=== PATIENT | male | born 1965 | race Caucasian/White ===

== ENCOUNTER 2016-05-22 21:07 | Emergency (ER) | payer MEDICARE ==
[2016-05-22 21:25] VITALS: BP 197/102
--- NOTE | 2016-05-22 21:31 | EDM.PDOC ---
ED HISTORY OF PRESENT ILLNESS - General Chief Complaint: Respiratory Problem Stated Complaint: SHORT OF BREATH Time Seen by Provider: 05/22/16 21:10 Source: Reports: Patient History Limitations: Reports: No limitations - History of Present Illness INITIAL COMMENTS - FREE TEXT/NARRATIVE: c/o sob x 2w pt with known interstital disease going back to at least 12/[address], still present on CxR 1m ago, repeat CT recommended then PCP Dr Argueta, however pt has had difficulty getting in to be seen at the clinic , did see a pulmonolgist once in [place] several years ago, has a f/u appointment in 2-3 wks has used nebs and OTC allergy meds with some benefit has rhinorrhea, slight pain with cough, otherwise no pain, cough productive small amount of sputum increasing SOB, wonders if he has pneumonia did not get flu vax ("I was always too sick") - Related Data Allergies/ADRs: Allergies Allergy/AdvReac Type Severity Reaction Status Date / Time No Known Allergies Allergy Verified 05/22/16 21:21 Home Meds: Home Meds Ibuprofen 400 mg PO ASDIRECTED PRN 01/24/13 [History] Allopurinol [Zyloprim] 300 mg PO DAILY 06/02/14 [History] Levothyroxine 175 mcg PO ACBRK 06/02/14 [History] Metoprolol Tartrate [Lopressor] 50 mg PO Q12HR 08/25/15 [History] Azithromycin [IJD: Azithromycin] 250 mg PO DAILY #6 tab 05/22/16 [Rx] Prednisone [IJD: predniSONE] 20 mg PO DAILY #7 tab 05/22/16 [Rx] Past Medical History Cardiovascular History: Reports: High cholesterol, Hypertension Respiratory History: Reports: Pulmonary fibrosis Gastrointestinal History: Reports: GERD Musculoskeletal History: Reports: Gout Neurological History: Reports: Alzheimers disease - Past Surgical History GI Surgical History: Reports: Hernia, inguinal Musculoskeletal Surgical History: Reports: Other (see below) Other Musculoskeletal Surgeries/Procedures:: LOWER EXTREMITY VEIN PHLEBECTOMY Social & Family History - Family History Family Medical History: Unobtainable - Tobacco Use Smoking Status *Q: Current Every Day Smoker Years of Tobacco use: 30 Packs/Tins Daily: 1 - Caffeine Use Caffeine Use: Reports: None - Alcohol Use Days Per Week of Alcohol Use: 0 - Recreational Drug Use Recreational Drug Use: No Drug Use in Last 12 Months: No ED ROS GENERAL - Review of Systems Review Of Systems: See Below Constitutional: Reports: no symptoms HEENT: Reports: Rhinitis Respiratory: Reports: shortness of breath, cough Cardiovascular: Reports: No symptoms Endocrine: Reports: no symptoms GI/Abdominal: Reports: No symptoms : Reports: no symptoms Musculoskeletal: Reports: no symptoms Skin: Reports: no symptoms Neurological: Reports: no symptoms Psychiatric: Reports: No symptoms Hematologic/Lymphatic: Reports: no symptoms Immunologic: Reports: no symptoms ED EXAM, GENERAL - Physical Exam Exam: See Below Exam Limited By: No limitations General Appearance: alert, WD/WN, no apparent distress, other (mildly anxious) Ears: normal external exam, normal canal Nose: normal inspection, normal mucosa, no blood, other (no swell R, 60% swell on L) Throat/Mouth: Normal inspection, Normal lips, Normal teeth, Normal gums, Normal oropharynx, Normal voice, No airway compromise Head: atraumatic, normocephalic Neck: normal inspection, supple, non-tender, full range of motion Respiratory/Chest: other (fair to good AE, clear in all [place], no cough observed, talks 10-word sentences) GI/Abdominal: normal bowel sounds, soft, non tender Back Exam: normal inspection, full range of motion, NT Extremities: normal inspection, normal range of motion, non-tender, normal capillary refill, no pedal edema Neurological: alert, oriented, CN II-XII intact, normal cognition, normal gait, normal reflexes, no motor/sensory deficits Psychiatric: normal affect, normal mood Skin Exam: Warm, Dry, Intact, Normal color, No rash Lymphatic: no adenopathy Course - Vital Signs Last Recorded V/S: Last Vital Signs Temp 36.3 C 05/22/16 21:10 Pulse 78 05/22/16 21:10 Resp 20 05/22/16 21:10 BP 197/102 H 05/22/16 21:10 Pulse Ox 100 05/22/16 21:10 - Orders/Labs/Meds Orders: Active Orders 24 hr Category Date Time Status EKG Documentation Completion [RC] ASDIRECTED Care 05/22/16 21:25 Active Chest wo Cont [CT] Stat Exams 05/22/16 21:23 Taken EKG 12 Lead [EK] Routine Ther 03/08/17 21:25 Ordered Labs: Laboratory Tests 05/22/16 05/22/16 05/22/16 Range/Units 21:40 21:40 21:40 WBC 10.4 (4.5-12.0) X10-3/uL RBC 4.85 (4.30-5.75) x10(6)uL Hgb 15.5 (11.5-15.5) g/dL Hct 46.4 (30.0-51.3) % MCV 95.6 (80-96) fL MCH 32.0 (27.7-33.6) pg MCHC 33.4 (32.2-35.4) g/dL RDW 13.2 (11.5-15.5) % Plt Count 209 (125-369) X10(3)uL MPV 7.6 (7.4-10.4) fL Neut % (Auto) 48.7 (46-82) % Lymph % (Auto) 36.5 (13-37) % Cotton % (Auto) 8.5 (4-12) % Eos % (Auto) 6 H (1.0-5.0) % Baso % (Auto) 1 (0-2) % Neut # 5.0 (1.6-8.3) # Lymph # 3.8 (0.6-5.0) # Cotton # 0.9 (0.0-1.3) # Eos # 0.6 (0.0-0.8) # Baso # 0.1 (0.0-0.2) # Sodium 133 L (135-145) mmol/L Potassium 3.6 (3.5-5.3) mmol/L Chloride 101 (100-110) mmol/L Carbon Dioxide 25 (23-29) mmol/L BUN 16 (5-20) mg/dL Creatinine 1.0 (0.6-1.3) mg/dL Est Cr Clr Drug Dosing 90.24 mL/min Estimated GFR (MDRD) > 60 (>60) BUN/Creatinine Ratio 16.0 (9-20) Glucose 104 (80-116) mg/dL Calcium 9.0 (8.6-10.2) mg/dL Total Bilirubin 0.3 (0.1-1.3) mg/dL AST 22 (5-27) IU/L ALT 14 (14-26) IU/L Alkaline Phosphatase 86 (56-112) IU/L Troponin I < 0.01 L (0.02-0.06) NG/ML C-Reactive Protein 1.0 (0.0-1.0) mg/dL Total Protein 7.1 (6.0-8.0) g/dL Albumin 3.8 (3.5-5.2) g/dL Globulin 3.3 g/dL Albumin/Globulin Ratio 1.2 - Re-Assessments/Exams Free Text/Narrative Re-Assessment/Exam: 05/22/16 23:12 CT shows pulmonary fibrosis and bronchiectasis, CBC and CMP and CRP are unremarkable, pt may some component of infection given inc'd sob despite PO 100% Departure - Departure Time of Disposition: 23:14 Disposition: Home, Self-Care 01 Condition: good Clinical Impression: Bronchiectasis, Pulmonary interstitial fibrosis Prescriptions: Azithromycin [IJD: Azithromycin] 250 mg PO DAILY #6 tab Prednisone [IJD: predniSONE] 20 mg PO DAILY #7 tab Instructions: Bronchiectasis Forms: ED Department Discharge Additional Instructions: For infection, take azithromycin 250 mg 2 tabs tomorrow, then 1 tab daily for the next 4 days. To open up your airways, take prednisone 20 mg 2 tabs daily for 2 days, then 1 tab daily or 3 days. Keep your appointment with the photograph developer in 2 weeks. Call your Physician or Return to Emergency Department if: * Your condition worsens in any way. * You develop fever greater than 100.4. * You have vomitting that does not stop with medications. * You have pain that is not controlled with medications. - My Orders Last 24 Hours: My Active Orders 05/22/16 21:23 Chest wo Cont [CT] Stat 05/22/16 21:25 EKG Documentation Completion [RC] ASDIRECTED EKG 12 Lead [EK] Routine - Assessment/Plan Last 24 Hours: My Active Orders 05/22/16 21:23 Chest wo Cont [CT] Stat 05/22/16 21:25 EKG Documentation Completion [RC] ASDIRECTED EKG 12 Lead [EK] Routine
== END 2016-05-22 23:30 | disposition home or self-care (01) ==
LOC: FB.ED 21:07
DX: J47.9 Bronchiectasis, uncomplicated (principal); J84.10 Pulmonary fibrosis, unspecified; E78.00 Pure hypercholesterolemia, unspecified; I10 Essential (primary) hypertension; K21.9 Gastro-esophageal reflux disease without esophagitis; G30.9 Alzheimer's disease, unspecified; Z79.899 Other long term (current) drug therapy; F17.210 Nicotine dependence, cigarettes, uncomplicated
CPT/HCPCS: 36415; 71250; 80053; 84484; 85025; 86140; 93005; 99283; 99285

== ENCOUNTER 2016-05-23 20:34 | Emergency (ER) | payer MEDICARE ==
--- NOTE | 2016-05-23 21:59 | EDM.PDOC ---
ED HISTORY OF PRESENT ILLNESS - General Chief Complaint: Respiratory Problem Stated Complaint: TROUBLE BREATHING Time Seen by Provider: 05/23/16 21:20 Source: Reports: Patient History Limitations: Reports: No limitations - History of Present Illness INITIAL COMMENTS - FREE TEXT/NARRATIVE: c/o sob pt seen 24h in ED by myself with same c/o, has known interstitial fibrosis and an appointment pending with a chief technician x ray in 2w CBC, CMP, CRP where neg yesterday. Chest CT showed the fibrosis along with bronchietasis. He was empirically begun on prednisone and azithromycin yesterday. He continues to be SOB which is better after an alb HFA. His PO was 100% yesterday and 98% today. A d-dimer is pending. - Related Data Allergies/ADRs: Allergies Allergy/AdvReac Type Severity Reaction Status Date / Time No Known Allergies Allergy Verified 05/23/16 20:47 Home Meds: Home Meds Allopurinol [Zyloprim] 300 mg PO DAILY 06/02/14 [History] Levothyroxine 175 mcg PO ACBRK 06/02/14 [History] Metoprolol Tartrate [Lopressor] 50 mg PO Q12HR 08/25/15 [History] Prednisone [IJD: predniSONE] 20 mg PO DAILY #7 tab 05/22/16 [Rx] Past Medical History HEENT History: Reports: None Cardiovascular History: Reports: High cholesterol, Hypertension Respiratory History: Reports: Pulmonary fibrosis Gastrointestinal History: Reports: GERD Musculoskeletal History: Reports: Gout Neurological History: Reports: Alzheimers disease Psychiatric History: Reports: Antisocial behaviors, Anxiety, Bipolar, Panic attack, Schizophrenia Endocrine/Metabolic History: Reports: Hypothyroidism - Past Surgical History GI Surgical History: Reports: Hernia, inguinal Musculoskeletal Surgical History: Reports: Other (see below) Other Musculoskeletal Surgeries/Procedures:: LOWER EXTREMITY VEIN PHLEBECTOMY Social & Family History - Family History Family Medical History: Unobtainable - Tobacco Use Smoking Status *Q: Former Smoker Years of Tobacco use: 41 Packs/Tins Daily: 1 Used Tobacco, but Quit: Yes Month Tobacco Last Used: 05/15/2016 - Caffeine Use Caffeine Use: Reports: Coffee - Alcohol Use Days Per Week of Alcohol Use: 0 - Recreational Drug Use Recreational Drug Use: No Drug Use in Last 12 Months: No ED ROS GENERAL - Review of Systems Review Of Systems: See Below Constitutional: Reports: no symptoms HEENT: Reports: No symptoms Respiratory: Reports: shortness of breath Cardiovascular: Reports: No symptoms Endocrine: Reports: no symptoms GI/Abdominal: Reports: No symptoms : Reports: no symptoms Musculoskeletal: Reports: no symptoms Skin: Reports: no symptoms Neurological: Reports: no symptoms Psychiatric: Reports: Anxiety Hematologic/Lymphatic: Reports: no symptoms Immunologic: Reports: no symptoms ED EXAM, GENERAL - Physical Exam Exam: See Below Exam Limited By: No limitations General Appearance: alert, WD/WN, no apparent distress Ears: normal external exam Nose: normal inspection, normal mucosa, no blood Throat/Mouth: Normal inspection, Normal lips, Normal teeth, Normal gums, Normal oropharynx, Normal voice, No airway compromise Head: atraumatic, normocephalic Neck: normal inspection, supple, non-tender, full range of motion Respiratory/Chest: no respiratory distress, lungs clear, normal breath sounds, no accessory muscle use, chest non-tender, other (anxious, no true dyspnea, no tachypnea, fair to good AE, no wheeze or rales, no cough observed) Cardiovascular: regular rate, rhythm, no edema, no gallop, no rub, other (2/6 DENISE at LSB) GI/Abdominal: soft, non tender Back Exam: normal inspection, full range of motion, NT Extremities: normal inspection, normal range of motion, non-tender, normal capillary refill, no pedal edema Neurological: alert, oriented, CN II-XII intact, normal cognition, no motor/ sensory deficits Psychiatric: anxious Skin Exam: Warm, Dry, Intact, Normal color, No rash Lymphatic: no adenopathy Course - Vital Signs Last Recorded V/S: Last Vital Signs Temp 36.6 C 05/23/16 20:42 Pulse 87 05/23/16 22:10 Resp 18 05/23/16 22:10 BP 144/99 H 05/23/16 22:10 Pulse Ox 98 05/23/16 22:10 - Orders/Labs/Meds Labs: Laboratory Tests 05/23/16 Range/Units 21:22 D-Dimer, Quantitative < 100 L (100-400) ng/mL - Re-Assessments/Exams Free Text/Narrative Re-Assessment/Exam: 05/23/16 22:20 d-dimer is neg Departure - Departure Time of Disposition: 22:20 Disposition: Home, Self-Care 01 Condition: good Clinical Impression: Interstitial fibrosis Forms: ED Department Discharge Additional Instructions: Continue current meds. See chief technician x ray in 2 weeks.
[2016-05-23 22:54] VITALS: BP 141/106
== END 2016-05-23 22:26 | disposition home or self-care (01) ==
LOC: FB.ED 20:34
DX: J84.10 Pulmonary fibrosis, unspecified (principal); E78.00 Pure hypercholesterolemia, unspecified; I10 Essential (primary) hypertension; K21.9 Gastro-esophageal reflux disease without esophagitis; G30.9 Alzheimer's disease, unspecified; F41.9 Anxiety disorder, unspecified; E03.9 Hypothyroidism, unspecified; Z79.899 Other long term (current) drug therapy; Z87.891 Personal history of nicotine dependence
CPT/HCPCS: 36415; 85379; 99282; 99284

== ENCOUNTER 2016-06-13 16:24 | Emergency (ER) | payer MEDICARE ==
[2016-06-13 16:30] VITALS: BP 171/87
[2016-06-13] MEDS ORDERED: diphenhydrAMINE 50 MG Cap PO ONE (16:56)
--- NOTE | 2016-06-13 18:07 | EDM.PDOC ---
ED HPI Behavioral Health - General Chief Complaint: Behavioral/Psych Stated Complaint: PANIC ATTACK Time Seen by Provider: 06/13/16 16:25 Source: Reports: Patient, EMS - History of Present Illness INITIAL COMMENTS - FREE TEXT/NARRATIVE: 50 years old w m came to to the ed deu to anxiety(?) by EMS because his is at work. Pt was calm here in the ed. his only complain was ant c/w pain with deep inspiration. No N/V/D Onset of Symptoms: Reports: gradual Symptom Onset Date: 06/13/16 Symptom Onset Time: 07:00 Duration of Symptoms: Reports: Hour(s):, Intermittent Context, Behavioral Health: Reports: family dynamics Associated Symptoms: Reports: anxiety Treatment(s) COUNTY NURSE: Reports: Other (see below) Other Treatment(s) COUNTY NURSE: visteral - Related Data Allergies Allergy/AdvReac Type Severity Reaction Status Date / Time No Known Allergies Allergy Verified 06/13/16 16:30 Home Medications: Home Meds Allopurinol [Zyloprim] 300 mg PO DAILY 06/02/14 [History] Levothyroxine 175 mcg PO ACBRK 06/02/14 [History] Metoprolol Tartrate [Lopressor] 50 mg PO Q12HR 08/25/15 [History] Prednisone [IJD: predniSONE] 20 mg PO DAILY #7 tab 05/22/16 [Rx] hydrOXYzine Pamoate [Vistaril] 25 mg PO Q6H 06/13/16 [History] Past Medical History HEENT History: Reports: None Cardiovascular History: Reports: High cholesterol, Hypertension Respiratory History: Reports: Pulmonary fibrosis Gastrointestinal History: Reports: GERD Musculoskeletal History: Reports: Gout Neurological History: Reports: Alzheimers disease Psychiatric History: Reports: Antisocial behaviors, Anxiety, Bipolar, Panic attack, Schizophrenia Endocrine/Metabolic History: Reports: Hypothyroidism - Past Surgical History GI Surgical History: Reports: Hernia, inguinal Musculoskeletal Surgical History: Reports: Other (see below) Other Musculoskeletal Surgeries/Procedures:: LOWER EXTREMITY VEIN PHLEBECTOMY Social & Family History - Family History Family Medical History: Unobtainable - Tobacco Use Smoking Status *Q: Former Smoker Years of Tobacco use: 30 Packs/Tins Daily: 1 Used Tobacco, but Quit: Yes Month Tobacco Last Used: 05/31 Second Hand Smoke Exposure: No - Caffeine Use Caffeine Use: Reports: Coffee - Alcohol Use Days Per Week of Alcohol Use: 0 - Recreational Drug Use Recreational Drug Use: No Drug Use in Last 12 Months: No ED ROS GENERAL - Review of Systems Review Of Systems: See Below Constitutional: Reports: no symptoms HEENT: Reports: No symptoms Respiratory: Reports: No Symptoms Cardiovascular: Reports: No symptoms Endocrine: Reports: no symptoms GI/Abdominal: Reports: No symptoms : Reports: no symptoms Musculoskeletal: Reports: no symptoms Skin: Reports: no symptoms Neurological: Reports: No Symptoms Hematologic/Lymphatic: Reports: no symptoms Immunologic: Reports: no symptoms ED EXAM, BEHAVIORAL HEALTH - Physical Exam Exam: See Below Exam Limited By: No limitations General Appearance: alert, WD/WN, no apparent distress Eye Exam: bilateral eye: normal inspection Ears: normal external exam, normal canal, hearing grossly normal Nose: normal inspection, normal mucosa Throat/Mouth: Normal lips Head: atraumatic, normocephalic Neck: normal inspection, supple, non-tender, full range of motion Respiratory/Chest: no respiratory distress, lungs clear, normal breath sounds Cardiovascular: normal peripheral pulses, regular rate, rhythm, no edema, no gallop GI/Abdominal: normal bowel sounds, soft, non tender, no organomegaly (Male) Exam: Deferred Rectal (Males) Exam: Deferred Back Exam: normal inspection, full range of motion, CVA tenderness (R) Extremities: normal inspection, normal range of motion, non-tender Neurological: alert, normal mood/affect, CN II-XII intact EKG INTERPRETATION EKG Date: 06/13/16 Time: 17:25 Rhythm: NSR [place]: RAD-right axis deviation P-wave: present QRS: normal ST-T: normal QT: normal Comparison: NA - no prior EKG COURSE, BEHAVIORAL HEALTH COMP - Course Vital Signs: Last Vital Signs Temp 36.5 C 06/13/16 16:25 Pulse 74 06/13/16 16:25 Resp 20 06/13/16 16:25 BP 171/87 H 06/13/16 16:25 Pulse Ox 98 06/13/16 16:25 50 years old w m came to to the ed deu to anxiety(?) by EMS because his is at work. Pt was calm here in the ed. his only complain was ant c/w pain with deep inspiration. No N/V/D PE: ant C/W discomfort wit h deep insp. ECG: NSR please see report above Impression: Anxiety Tx: Benadryl Reexam: Imprved Plan: D/C to [facility] Orders, Labs, Meds: Active Orders 24 hr Category Date Time Status EKG Documentation Completion [RC] ASDIRECTED Care 06/13/16 16:57 Active EKG 12 Lead [EK] Routine Ther 06/13/16 16:57 Ordered Medications Discontinued Medications Generic Name Dose Route Start Last Admin Trade Name Freq PRN Reason Stop Dose Admin Diphenhydramine HCl 50 mg 06/13/16 16:56 06/13/16 17:43 Benadryl PO 06/13/16 16:57 50 mg ONETIME ONE Administration Departure - Departure Time of Disposition: 18:12 Disposition: Home, Self-Care 01 Condition: good Clinical Impression: Anxiety Referrals: Roque Argueta MD [Primary Care Provider] - Forms: ED Department Discharge Additional Instructions: Please f/u with your PMD, come back if worse. - My Orders Last 24 Hours: My Active Orders 06/13/16 16:57 EKG Documentation Completion [RC] ASDIRECTED EKG 12 Lead [EK] Routine - Assessment/Plan Last 24 Hours: My Active Orders 06/13/16 16:57 EKG Documentation Completion [RC] ASDIRECTED EKG 12 Lead [EK] Routine
== END 2016-06-13 18:03 | disposition home or self-care (01) ==
LOC: FB.ED 16:24
DX: F41.9 Anxiety disorder, unspecified (principal); E78.00 Pure hypercholesterolemia, unspecified; I10 Essential (primary) hypertension; K21.9 Gastro-esophageal reflux disease without esophagitis; E03.9 Hypothyroidism, unspecified; F31.9 Bipolar disorder, unspecified; Z98.890 Other specified postprocedural states; Z87.891 Personal history of nicotine dependence; Z79.899 Other long term (current) drug therapy
CPT/HCPCS: 93005; 99283; A9270

== ENCOUNTER 2016-11-18 20:52 | Emergency (ER) | payer MEDICARE ==
[2016-11-18] MEDS ORDERED: LORazepam 1 MG Tab PO ONE (21:01)
[2016-11-18 21:45] VITALS: BP 135/73
--- NOTE | 2016-11-19 03:19 | ER ---
DATE SEEN: 11/18/2016 REASON FOR VISIT: Anxiety. HISTORY OF PRESENT ILLNESS: A 51-year-old male, who is here with his complaining of anxiety and panic attack, started about 3 hours ago when it was seen that he was unable to breathe. He had tingling of the hands and sweating, but symptoms have slightly improved when he took hydroxyzine. This has been happening lately more than usual. CURRENT MEDICATIONS: Please see the nurse's notes. ALLERGIES: No known allergies. REVIEW OF SYSTEMS: No chest pain, fever, or chills. PHYSICAL EXAMINATION: GENERAL: He is not in any distress. VITAL SIGNS: He is afebrile and normal oxygenation on room air. ENT: Negative. NECK: Supple. CHEST: Clear. CARDIOVASCULAR: Normal. MENTAL STATUS: Alert, mildly anxious, but answers question appropriately. IMPRESSION: Anxiety attack. PLAN: Lorazepam 1 mg orally once. The patient advised to follow up with [facility] tomorrow to discuss review of his medications. TIME SEEN: 9 p.m. /[id number] SHREYA/OMAIRA
== END 2016-11-18 21:21 | disposition home or self-care (01) ==
LOC: FB.ED 20:52
DX: F41.9 Anxiety disorder, unspecified (principal)
CPT/HCPCS: 99282; A9270; 99283

== ENCOUNTER 2019-02-11 16:09 | Emergency (ER) | payer MEDICARE ==
[2019-02-11] MEDS ORDERED: LORazepam 2 MG/ML SDV IM ONE (16:26)
--- NOTE | 2019-02-11 16:26 | EDM.PDOC ---
ED HPI GENERAL MEDICAL PROBLEM - General Time Seen by Provider: 02/11/19 16:10 Source of Information: Reports: Patient History Limitations: Reports: No Limitations - History of Present Illness INITIAL COMMENTS - FREE TEXT/NARRATIVE: pt comes from home by EMS with c/o panic attack, states for about an hr he has been feeling restless and itchy at his extremities, denies any ther associated sx or concerns, including any resp or CV sx or neuro sx. has taken his usual anxiety meds and contacted EMS, on arrival he seems comfortable and has stable vital. - Related Data Allergies Allergy/AdvReac Type Severity Reaction Status Date / Time No Known Allergies Allergy Verified 06/13/16 16:30 Home Meds: Home Meds Allopurinol [Zyloprim] 300 mg PO DAILY 06/02/14 [History] Levothyroxine 175 mcg PO ACBRK 06/02/14 [History] Metoprolol Tartrate [Lopressor] 50 mg PO Q12HR 08/25/15 [History] Prednisone [IJD: predniSONE] 20 mg PO DAILY #7 tab 05/22/16 [Rx] hydrOXYzine Pamoate [Vistaril] 25 mg PO Q6H 06/13/16 [History] Past Medical History HEENT History: Reports: None Cardiovascular History: Reports: High Cholesterol, Hypertension Respiratory History: Reports: Pulmonary Fibrosis Gastrointestinal History: Reports: None Genitourinary History: Reports: None Musculoskeletal History: Reports: Gout Neurological History: Reports: Alzheimers Disease Psychiatric History: Reports: Antisocial Behaviors, Anxiety, Bipolar, Panic Attack, Schizophrenia Endocrine/Metabolic History: Reports: Hypothyroidism Hematologic History: Reports: None Dermatologic History: Reports: None - Past Surgical History Cardiovascular Surgical History: Reports: None GI Surgical History: Reports: Hernia, Inguinal Male Surgical History: Reports: None Social & Family History - Family History Family Medical History: Noncontributory - Caffeine Use Caffeine Use: Reports: Coffee, Other Other Caffeine Use: sprite ED ROS GENERAL - Review of Systems Review Of Systems: See Below Constitutional: Reports: No Symptoms HEENT: Reports: No Symptoms Respiratory: Reports: No Symptoms Cardiovascular: Reports: No Symptoms GI/Abdominal: Reports: No Symptoms : Reports: No Symptoms Musculoskeletal: Reports: No Symptoms Skin: Reports: No Symptoms ED EXAM, GENERAL - Physical Exam Exam: See Below Exam Limited By: No Limitations General Appearance: Alert, No Apparent Distress Nose: Normal Inspection Throat/Mouth: Normal Inspection, Normal Oropharynx Head: Atraumatic, Normocephalic Neck: Normal Inspection, Supple, Non-Tender Respiratory/Chest: No Respiratory Distress, Lungs Clear, Normal Breath Sounds Cardiovascular: Normal Peripheral Pulses, Regular Rate, Rhythm, No JVD, No Murmur GI/Abdominal: Normal Bowel Sounds, Soft, Non-Tender Psychiatric: Anxious. No: Tearful Skin Exam: Warm Course - Vital Signs Text/Narrative:: pt clinically has mild anxiety sx, was give ativan 1 mg , he is stable for discharge home with follow up with PCP. Departure - Departure Time of Disposition: 16:26 Disposition: Home, Self-Care 01 Clinical Impression: Anxiety disorder - Discharge Information Referrals: PCP,None [Primary Care Provider] -
[2019-02-11 17:11] VITALS: BP 143/85; PULSE 85
== END 2019-02-11 16:40 | disposition home or self-care (01) ==
LOC: FB.ED 16:09
DX: F41.9 Anxiety disorder, unspecified (principal); I10 Essential (primary) hypertension; G30.9 Alzheimer's disease, unspecified; F02.80 Dementia in other diseases classified elsewhere, unspecified severity, without behavioral disturbance, psychotic disturbance, mood disturbance, and anxiety; Z79.899 Other long term (current) drug therapy
CPT/HCPCS: 96372; 99283; J2060

== ENCOUNTER 2020-02-06 15:31 | Emergency (ER) | payer MEDICARE ==
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
[2020-02-06 19:56] VITALS: BP 161/83; PULSE 93
== END 2020-02-06 16:39 | disposition home or self-care (01) ==
LOC: FB.ED 15:31
DX: F41.9 Anxiety disorder, unspecified (principal); E78.00 Pure hypercholesterolemia, unspecified; I10 Essential (primary) hypertension; J44.9 Chronic obstructive pulmonary disease, unspecified; K21.9 Gastro-esophageal reflux disease without esophagitis; M10.9 Gout, unspecified; F31.9 Bipolar disorder, unspecified; G30.9 Alzheimer's disease, unspecified; F02.80 Dementia in other diseases classified elsewhere, unspecified severity, without behavioral disturbance, psychotic disturbance, mood disturbance, and anxiety; E03.9 Hypothyroidism, unspecified; E66.9 Obesity, unspecified; Z68.41 Body mass index [BMI] 40.0-44.9, adult; F17.210 Nicotine dependence, cigarettes, uncomplicated
CPT/HCPCS: 99283; 99284

== ENCOUNTER 2020-02-18 14:35 | Emergency (ER) | payer MEDICARE ==
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
[2020-02-18] MEDS ORDERED: cefTRIAXone 1 GM Vial IM ONE (15:51)
[2020-02-18] MEDS ORDERED: Albuterol/Ipratropium 3.0-0.5 MG/3 ML Neb Soln NEB ONE ×2 (15:51→17:08)
[2020-02-18] MEDS ORDERED: methylPREDNISolone Sodium Succinate 125 MG/2 ML SDV IM ONE (15:51)
[2020-02-18] MEDS ORDERED: Doxycycline 100 MG Tab PO ONE (15:53)
[2020-02-18 17:25] VITALS: BP 140/74
[2020-02-18 18:00] VITALS: PULSE 80
== END 2020-02-18 17:52 | disposition home or self-care (01) ==
LOC: FB.ED 14:35
DX: J44.0 Chronic obstructive pulmonary disease with (acute) lower respiratory infection (principal); J20.9 Acute bronchitis, unspecified; E78.00 Pure hypercholesterolemia, unspecified; I10 Essential (primary) hypertension; K21.9 Gastro-esophageal reflux disease without esophagitis; M10.9 Gout, unspecified; G30.9 Alzheimer's disease, unspecified; F02.80 Dementia in other diseases classified elsewhere, unspecified severity, without behavioral disturbance, psychotic disturbance, mood disturbance, and anxiety; E03.9 Hypothyroidism, unspecified; E66.9 Obesity, unspecified; N42.9 Disorder of prostate, unspecified; F41.9 Anxiety disorder, unspecified; F20.9 Schizophrenia, unspecified; Z20.828 Contact with and (suspected) exposure to other viral communicable diseases
CPT/HCPCS: 36415; 71046; 80053; 84484; 85025; 85379; 94640; 96372; 99285; A9270; J0696; J2930; U0002; 99284; J7620-GY

== ENCOUNTER 2020-03-13 11:18 | Emergency (ER) | payer MEDICARE ==
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
[2020-03-13] MEDS: Azithromycin 500 MG Tab PO ONE (11:58)
[2020-03-13] MEDS: predniSONE 20 MG Tab PO STA (13:00)
[2020-03-13] MEDS: Albuterol 2 MG/5 ML Syrup ML 473 ML Bottle PO STA (13:10)
[2020-03-13] MEDS: Albuterol/Ipratropium 3.0-0.5 MG/3 ML Neb Soln NEB ONE (14:14)
--- NOTE | 2020-03-13 14:15 | CT ---
INDICATION: Shortness of breath, COVID. CT CHEST WITHOUT CONTRAST: Spiral 3.75 mm axial sections were obtained through the chest with sagittal, coronal and axial reconstructions 03/13/20 and compared with 05/22/16. Total exam DLP was 769.39 mGy-cm. Moderate to moderately severe mediastinal lymphadenopathy is noted which likely is reactive to infection and appears in some areas slightly increased compared with the previous study. No definite mediastinal mass was seen. The heart appears to be near the upper limits of normal in size. No pericardial effusion was seen. The upper abdomen included on this study showed no gross abnormalities. Extensive interstitial changes, bronchiectasis with honeycombing and centrilobular emphysema. These changes appear to be significantly increased in severity compared with the previous examination. There is also a degree of ground-glass appearing infiltrate scattered among the areas of fibrosis which are fairly severe and become increasingly severe in the lung bases. No gross consolidating pneumonia or effusion was identified. The possibility of coexisting COVID-19 pneumonia certainly cannot be excluded. IMPRESSION: Extensive fibrotic for the most part chronic appearing changes that have advanced considerably compared with 2017 CT of the chest. Honeycombing, interstitial fibrosis, centrilobular emphysema and possibly areas of superimposed patchy pneumonia are suggested. Report was called to Dr. Zavala at 1353 hours. [facility]
[2020-03-13 15:12] VITALS: BP 134/84; PULSE 84
== END 2020-03-13 15:00 | disposition home or self-care (01) ==
LOC: FB.ED 11:18
DX: U07.1 COVID-19 (principal); E03.9 Hypothyroidism, unspecified; F41.9 Anxiety disorder, unspecified; K21.9 Gastro-esophageal reflux disease without esophagitis; J44.9 Chronic obstructive pulmonary disease, unspecified; I10 Essential (primary) hypertension; E78.00 Pure hypercholesterolemia, unspecified; M10.9 Gout, unspecified; Z79.899 Other long term (current) drug therapy
CPT/HCPCS: 71250; 99284; 99285-25; A9270-GY; J7512; U0002

== ENCOUNTER 2020-03-14 12:28 | Emergency (ER) | payer MEDICARE ==
[2020-03-14] MEDS: QUEtiapine 25 MG Tab PO ONE (12:50)
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
[2020-03-14 13:17] VITALS: BP 144/90; PULSE 84
== END 2020-03-14 13:50 | disposition home or self-care (01) ==
LOC: FB.ED 12:28
DX: U07.1 COVID-19 (principal); J44.0 Chronic obstructive pulmonary disease with (acute) lower respiratory infection; F20.9 Schizophrenia, unspecified; F41.0 Panic disorder [episodic paroxysmal anxiety]; I10 Essential (primary) hypertension; E78.00 Pure hypercholesterolemia, unspecified; K21.9 Gastro-esophageal reflux disease without esophagitis; M10.9 Gout, unspecified; F31.9 Bipolar disorder, unspecified; E03.9 Hypothyroidism, unspecified; E66.9 Obesity, unspecified; Z79.899 Other long term (current) drug therapy
CPT/HCPCS: 99283; 99284; A9270-GY

== ENCOUNTER 2020-04-15 09:59 | Emergency (ER) | payer MEDICARE ==
[2020-04-15 10:17] VITALS: BP 152/78; PULSE 17
[2020-04-15] MEDS ORDERED: Bisacodyl 10 MG Supp RECTAL ONE (10:39)
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
== END 2020-04-15 10:50 | disposition home or self-care (01) ==
LOC: FB.ED 09:59
DX: K59.00 Constipation, unspecified (principal); E78.00 Pure hypercholesterolemia, unspecified; I10 Essential (primary) hypertension; J44.9 Chronic obstructive pulmonary disease, unspecified; K21.9 Gastro-esophageal reflux disease without esophagitis; N42.9 Disorder of prostate, unspecified; G30.9 Alzheimer's disease, unspecified; F02.80 Dementia in other diseases classified elsewhere, unspecified severity, without behavioral disturbance, psychotic disturbance, mood disturbance, and anxiety; E03.9 Hypothyroidism, unspecified; E66.9 Obesity, unspecified; Z68.24 Body mass index [BMI] 24.0-24.9, adult
CPT/HCPCS: 99283; 99284; A9270-GY

== ENCOUNTER 2020-04-18 20:35 | Emergency (ER) | payer MEDICARE ==
[2020-04-18] MEDS ORDERED: methylPREDNISolone Sodium Succinate 125 MG/2 ML SDV IVPUSH ONE (20:50)
[2020-04-18] MEDS ORDERED: Ketorolac 30 MG/ML SDV IVPUSH ONE (20:51)
[2020-04-18] MEDS ORDERED: Albuterol/Ipratropium 3.0-0.5 MG/3 ML Neb Soln NEB ONE (20:51)
[2020-04-18] MEDS: Sodium Chloride 0.9% 10 ML Syringe FLUSH PRN ×2 (21:04→21:08)
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
[2020-04-18 22:18] VITALS: BP 131/88; PULSE 86
== END 2020-04-18 22:30 | disposition home or self-care (01) ==
LOC: FB.ED 20:35
DX: J44.9 Chronic obstructive pulmonary disease, unspecified (principal); R09.1 Pleurisy; E78.00 Pure hypercholesterolemia, unspecified; I10 Essential (primary) hypertension; K21.9 Gastro-esophageal reflux disease without esophagitis; N42.9 Disorder of prostate, unspecified; M10.9 Gout, unspecified; G30.9 Alzheimer's disease, unspecified; F02.80 Dementia in other diseases classified elsewhere, unspecified severity, without behavioral disturbance, psychotic disturbance, mood disturbance, and anxiety; E03.9 Hypothyroidism, unspecified; E66.9 Obesity, unspecified; Z68.31 Body mass index [BMI] 31.0-31.9, adult
CPT/HCPCS: 36415; 80053; 83880; 84484; 85025; 85379; 93005; 94640; 96374; 96375; 99285; J1885; J2930; J7620-GY

== ENCOUNTER 2020-05-07 10:18 | Emergency (ER) | payer MEDICARE ==
[2020-05-07 10:35] VITALS: PULSE 88
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
[2020-05-07 13:59] VITALS: BP 126/80
--- NOTE | 2020-05-08 10:42 | CR ---
INDICATION: Status post chest tube insertion 6 days ago. CHEST ONE VIEW: Two AP upright views of the chest were obtained 05/07/20 and compared with 02/18/20. There is bilateral interstitial infiltration which appears to have some predominance peripherally raising question of a process such as COVID-19 pneumonia. There is some minimal pleural thickening laterally. No gross consolidating pneumonia was identified. No significant pleural effusion was seen. The heart did not appear enlarged. IMPRESSION: Increasing infiltration bilaterally is suggested which may be on the basis of unusual pneumonia such as a viral pneumonia. MTDD
--- NOTE | 2020-05-08 10:47 | CR ---
INDICATION: Abdominal pain on the right. ABDOMEN TWO VIEW: Eleven images of the abdomen in supine and upright projections were obtained 05/07/20 and compared with 01/26/13. The pattern of gas and feces is fairly nonspecific without evidence of free air or obstruction. No definite mass lesions or organomegaly were seen. Evidence of previous inguinal herniorrhaphies is noted. There are no definite mass lesions, organomegaly or nonvascular pathologic calcifications were noted. There is suggestion of a dextroconvex slightly rotatory scoliosis of the lower middle lumbar spine. IMPRESSION: Nonacute abdomen. MTDD
== END 2020-05-07 13:10 | disposition home or self-care (01) ==
LOC: FB.ED 10:18
DX: K59.00 Constipation, unspecified (principal); R07.89 Other chest pain; E78.00 Pure hypercholesterolemia, unspecified; I10 Essential (primary) hypertension; J44.9 Chronic obstructive pulmonary disease, unspecified; K21.9 Gastro-esophageal reflux disease without esophagitis; N42.9 Disorder of prostate, unspecified; E03.9 Hypothyroidism, unspecified; E66.9 Obesity, unspecified; Z68.35 Body mass index [BMI] 35.0-35.9, adult; Z86.16 Personal history of COVID-19; M10.9 Gout, unspecified; G30.9 Alzheimer's disease, unspecified; F02.80 Dementia in other diseases classified elsewhere, unspecified severity, without behavioral disturbance, psychotic disturbance, mood disturbance, and anxiety; Z87.891 Personal history of nicotine dependence
CPT/HCPCS: 36415; 71045; 74019; 80053; 81001; 83690; 84484; 85025; 85379; 85610; 85730; 93005; 99285-25

== ENCOUNTER 2020-05-19 02:29 | Emergency (ER) | payer MEDICARE ==
[2020-05-19] MEDS ORDERED: Albuterol/Ipratropium 3.0-0.5 MG/3 ML Neb Soln ONE (02:32)
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
[2020-05-19] MEDS ORDERED: Ketorolac 30 MG/ML SDV IVPUSH ONE (02:52)
[2020-05-19 03:00] VITALS: BP 156/101; PULSE 107
[2020-05-19] MEDS ORDERED: fentaNYL 100 MCG/2 ML SDV ONE ×2 (03:19→03:33)
[2020-05-19] MEDS ORDERED: fentaNYL 100 MCG/2 ML SDV IVPUSH ONE ×3 (03:20→06:35)
[2020-05-19] MEDS ORDERED: HYDROmorphone 2 MG/ML SDV IVPUSH PRN (04:18)
[2020-05-19] MEDS ORDERED: Magnesium Hydroxide 400 MG/5 ML Susp 30 ML Cup PO PRN (04:18)
[2020-05-19] MEDS ORDERED: Zolpidem 5 MG Tab PO PRN (04:18)
[2020-05-19] MEDS ORDERED: Ondansetron 4 MG/2 ML SDV IV PRN (04:18)
[2020-05-19] MEDS ORDERED: Albuterol 0.083% 2.5 MG/3 ML Neb Soln NEB PRN (04:18)
[2020-05-19] MEDS ORDERED: Enoxaparin 40 MG/0.4 ML Syringe SUBCUT SCH (04:30)
[2020-05-19] MEDS ORDERED: Sodium Chloride 0.9% 1,000 ML IV SCH (04:30)
[2020-05-19] MEDS ORDERED: QUEtiapine 25 MG Tab PO PRN (04:34)
[2020-05-19] MEDS ORDERED: Metoprolol Tartrate 50 MG Tab PO SCH (05:00)
[2020-05-19] MEDS ORDERED: Pantoprazole 40 MG Tab.CR PO SCH (06:00)
[2020-05-19] MEDS ORDERED: Budesonide 0.5 MG/2 ML Neb Susp NEB SCH (07:00)
[2020-05-19] MEDS ORDERED: Levothyroxine 150 MCG Tab PO SCH (07:30)
[2020-05-19] MEDS ORDERED: predniSONE 5 MG Tab PO SCH (08:00)
[2020-05-19] MEDS ORDERED: atorvaSTATin 20 MG Tab PO SCH (09:00)
[2020-05-19] MEDS ORDERED: Gabapentin 300 MG Cap PO SCH (09:00)
[2020-05-19] MEDS ORDERED: Ketorolac 30 MG/ML SDV IM SCH (09:00)
[2020-05-19] MEDS ORDERED: Finasteride 5 MG Tab PO SCH (09:00)
[2020-05-19] MEDS ORDERED: busPIRone 15 MG Tab PO SCH (09:00)
[2020-05-19] MEDS ORDERED: ZINC GLUCONATE PO SCH (09:00)
[2020-05-19] MEDS ORDERED: Acetaminophen 325 MG Tab PO SCH (09:00)
--- NOTE | 2020-05-19 10:32 | CR ---
INDICATION: Chest pain. CHEST, ONE VIEW: An AP upright portable view of the chest obtained at 0354 hours on 05/19/20 was compared with same day images from 0258 hours and 05/07/20 revealing interval placement of a right chest tube with reexpansion of the lung and residual pneumothorax of approximately 25%. The lungs have a congested appearance, which may be on the basis of CHF with lung edema, although pneumonia could also be present. The possibility of pleural effusion cannot be excluded, but is not definite. Overlying EKG leads are noted. IMPRESSION: Reexpansion of the lung to approximately 75% with a 25% pneumothorax residual suggested with right chest tube in place. Findings in the lungs remain compatible with severe fibrosis, although pneumonia is difficult to exclude, as well as CHF. MTDD
--- NOTE | 2020-05-19 10:36 | CR ---
INDICATION: Chest pain. Two portable AP upright views of the chest were obtained at 0258 hours 05/19/20 and compared with 05/07/20 and 02/18/20. A 75% pneumothorax is noted on the right, most likely on the basis of rupture of bleb seen on recent CT of the chest dated 05/17/20. Extensive fibrotic-appearing changes are again noted in the lungs, making it difficult to exclude pneumonia or even pulmonary edema. The heart however did not appear grossly enlarged. Overlying EKG leads are noted. IMPRESSION: New acute finding of 75% pneumothorax on the right. MTDD
[2020-05-19] MEDS ORDERED: Tamsulosin 0.4 MG Cap.ER PO SCH (21:00)
[2020-05-19] MEDS ORDERED: Allopurinol 300 MG Tab PO SCH (21:00)
[2020-05-19] MEDS ORDERED: Benztropine 1 MG Tab PO SCH (21:00)
== END 2020-05-19 07:18 ==
LOC: FB.ED 02:29 → UNDOADMIN 04:10 → FB.MS 04:10 → FB.ED 07:18
DX: J44.9 Chronic obstructive pulmonary disease, unspecified (principal); J84.10 Pulmonary fibrosis, unspecified; J93.9 Pneumothorax, unspecified; U07.1 COVID-19; E78.00 Pure hypercholesterolemia, unspecified; I10 Essential (primary) hypertension; N42.9 Disorder of prostate, unspecified; K21.9 Gastro-esophageal reflux disease without esophagitis; G30.9 Alzheimer's disease, unspecified; F02.80 Dementia in other diseases classified elsewhere, unspecified severity, without behavioral disturbance, psychotic disturbance, mood disturbance, and anxiety; M10.9 Gout, unspecified; E03.9 Hypothyroidism, unspecified; E66.9 Obesity, unspecified; Z79.899 Other long term (current) drug therapy
CPT/HCPCS: 36415; 71045; 80053; 80307; 84484; 85025; 86140; 93005; 99285; J1885; J3010; J7620-GY; U0002

== ENCOUNTER 2020-06-21 12:19 | Emergency (ER) | payer MEDICARE ==
[2020-06-21] MEDS ORDERED: Albuterol/Ipratropium 3.0-0.5 MG/3 ML Neb Soln NEB ONE (12:47)
[2020-06-21] MEDS ORDERED: methylPREDNISolone Sodium Succinate 125 MG/2 ML SDV IM ONE (13:17)
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
[2020-06-21] MEDS ORDERED: Metoprolol Tartrate 50 MG Tab PO ONE (13:58)
[2020-06-21] MEDS ORDERED: Iopamidol 755 Mg/ML 100 ML Bottle IV ONE (14:15)
[2020-06-21] MEDS ORDERED: methylPREDNISolone Sodium Succinate 125 MG/2 ML SDV IV ONE (14:21)
[2020-06-21] MEDS ORDERED: Magnesium Hydroxide 400 MG/5 ML Susp 30 ML Cup PO ONE ×2 (14:23→16:00)
[2020-06-21] MEDS ORDERED: Sodium Chloride 0.9% 10 ML Syringe FLUSH PRN (14:29)
--- NOTE | 2020-06-21 16:01 | CT ---
CT ABDOMEN AND PELVIS WITH CONTRAST 6825 INDICATION: Abdominal pain. Spiral 2.75 mm axial sections were obtained through the abdomen and pelvis with 100 cc Isovue 370 at 2 mL/sec with sagittal and coronal reconstructions 06/21/2020 and compared with 12/20/2017. Compared with the previous study, there is increasing infiltration at both lung bases compatible with progressive fibrosis; although, pneumonia superimposed on fibrosis cannot be excluded with this appearance. Also noted are abnormal air spaces suggesting emphysematous changes as well as bronchiectasis suggesting chronic inflammatory disease. The liver had a normal appearance. The wall of the gallbladder appeared to be somewhat thickened emphasized by relative contraction of the gallbladder. There is some minimal pericholecystic fat stranding raising question of a possibility of chronic cholecystitis--correlate clinically--no definite calculi were demonstrated. The adrenal glands, kidneys, spleen, and pancreas appear normal. Calcifications are noted in the abdominal aorta, iliac and femoral arteries. The prostate did not appear to be enlarged. However, the urinary bladder is markedly distended measuring 197 x 128 x 113 mm in craniocaudad, transverse and AP diameters. This may represent a significant degree of urinary retention. Hypertrophic degenerative changes are noted in the thoracolumbosacral spine with progressive degenerative disc disease at L4-5 and degenerative disc disease at L5-S1. Vacuum disc phenomena are noted at those levels. The appendix appeared normal on coronal images 39 through 61. No evidence of ventral or left inguinal hernia was identified with what appears to be a small right inguinal hernia including only fat. There is noted a very tiny periumbilical hernia which includes only fat and is unchanged from the previous study. No evidence of free air or bowel obstruction was seen. No evidence of retroperitoneal mass was identified. Report was called to Dr. Zavala at 1458 hours 06/21/2020. IMPRESSION: 1. Markedly distended urinary bladder may represent significant urinary retention--correlate clinically. 2. Normal appearing appendix. 3. ASD without aneurysmal dilatation. 4. Degenerative changes and disc disease thoracolumbosacral spine as noted above. 5. Suggestion of thickening of the wall of the gallbladder; however, the gallbladder is contracted and the minimal fat stranding pericholecystic is of questionable etiology possibly due to chronic cholecystitis--correlate clinically. 6. Probable progressive pulmonary fibrosis; although, superimposed pneumonia cannot be excluded. 7. Small right inguinal hernia including only fat. MTDD
--- NOTE | 2020-06-21 16:01 | CR ---
INDICATION: Shortness of breath. CHEST TWO VIEWS: PA and lateral views of the chest 06/21/20 were compared with 05/19/20 and revealed resolution of a previous pneumothorax on the right with decreased pulmonary markings overall, but with continued heavy markings compatible with pulmonary fibrosis. The possibility of superimposed areas of pneumonia, especially at the lung bases cannot be excluded. MTDD
[2020-06-21 17:13] VITALS: BP 137/80; PULSE 74
== END 2020-06-21 16:00 | disposition home or self-care (01) ==
LOC: FB.ED 12:19
DX: H10.9 Unspecified conjunctivitis (principal); J44.9 Chronic obstructive pulmonary disease, unspecified; J84.10 Pulmonary fibrosis, unspecified; F41.9 Anxiety disorder, unspecified; R33.9 Retention of urine, unspecified; E78.00 Pure hypercholesterolemia, unspecified; I10 Essential (primary) hypertension; Z86.711 Personal history of pulmonary embolism; K21.9 Gastro-esophageal reflux disease without esophagitis; M10.9 Gout, unspecified; E03.9 Hypothyroidism, unspecified; E66.9 Obesity, unspecified; Z99.81 Dependence on supplemental oxygen; Z87.891 Personal history of nicotine dependence; Z68.35 Body mass index [BMI] 35.0-35.9, adult; Z86.16 Personal history of COVID-19
CPT/HCPCS: 36415; 71046; 74177; 80053; 81001; 83880; 84484; 85025; 85379; 93005; 94640; 96374; 99285-25; A9270-GY; J2930; J7620-GY; Q9967

== ENCOUNTER 2020-08-26 15:02 | Emergency (ER) | payer MEDICARE ==
[2020-08-26 15:38] VITALS: BP 132/83; PULSE 98
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
[2020-08-26] MEDS ORDERED: Calcium Gluconate 10% 1 GM/10 ML SDV IVPUSH ONE (17:55)
== END 2020-08-26 18:40 | disposition home or self-care (01) ==
LOC: FB.ED 15:02
DX: E83.51 Hypocalcemia (principal); E78.00 Pure hypercholesterolemia, unspecified; I10 Essential (primary) hypertension; J44.9 Chronic obstructive pulmonary disease, unspecified; E03.9 Hypothyroidism, unspecified; E66.9 Obesity, unspecified; Z68.30 Body mass index [BMI] 30.0-30.9, adult
CPT/HCPCS: 36415; 71046; 80053; 82550; 83880; 84484; 85025; 93005; 96374; 99283; J0610

== ENCOUNTER 2020-11-23 19:28 | Emergency (ER) | payer MEDICARE ==
[2020-11-23] MEDS: Sodium Chloride 0.9% 10 ML Syringe FLUSH PRN (19:40)
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
--- NOTE | 2020-11-23 20:16 | PCM.EKG ---
#1 Interpretation EKG Date: 11/23/20 Time: 19:30 EKG Interpretation Comments: Sinus tachycardia, normal axis, rate 101, no obvious ST-T segment abnormalities
[2020-11-23 20:19] LABS: PCO2 VENOUS,POC 34 mmHg (41-51)
[2020-11-23 20:20] LABS: BASE EXCESS VENOUS,POC 4 mmol/L (-2 - 3+); PH VENOUS,POC 7.51 pH Units (7.32-7.43)
[2020-11-23 20:21] VITALS: BP 132/96; PULSE 100
[2020-11-23] MEDS: Aspirin 81 MG Tab.Chew PO ONE (21:37)
[2020-11-23] MEDS: Iopamidol 755 Mg/ML 100 ML Bottle IV ONE (22:12)
[2020-11-23] MEDS ORDERED: Nicotine Polacrilex 2 MG Gum CHEW PRN (22:45)
[2020-11-23] MEDS: Nicotine Polacrilex 2 MG Gum CHEW PRN (22:46)
[2020-11-24] MEDS ORDERED: Aspirin 81 MG Tab.Chew PO ONE (20:54)
== END 2020-11-24 00:15 ==
LOC: FB.ED 19:28
DX: J96.01 Acute respiratory failure with hypoxia (principal); J96.02 Acute respiratory failure with hypercapnia; K81.1 Chronic cholecystitis; E87.3 Alkalosis; E78.00 Pure hypercholesterolemia, unspecified; I10 Essential (primary) hypertension; J44.9 Chronic obstructive pulmonary disease, unspecified; K21.9 Gastro-esophageal reflux disease without esophagitis; E03.9 Hypothyroidism, unspecified; E66.9 Obesity, unspecified; M10.9 Gout, unspecified; R79.89 Other specified abnormal findings of blood chemistry; Z79.899 Other long term (current) drug therapy; Z87.891 Personal history of nicotine dependence; Z79.82 Long term (current) use of aspirin; Z20.822 Contact with and (suspected) exposure to COVID-19; Z68.38 Body mass index [BMI] 38.0-38.9, adult
CPT/HCPCS: 36415; 71045; 71275; 80053; 81001; 83880; 84484; 85025; 93005; 99285; A9270; Q9967; U0002

== ENCOUNTER 2020-12-14 07:47 | Emergency (ER) | payer MEDICARE ==
[2020-12-14] MEDS ORDERED: Sodium Chloride 0.9% 10 ML Syringe FLUSH PRN (07:50)
[2020-12-14] MEDS: Alum Hydroxide/Mag Hydroxide 15 ML, Lidocaine 2% 15 ML PO ONE ×2 (08:03)
[2020-12-14] MEDS: Morphine 4 MG/ML VIAL IVPUSH ONE (08:35)
[2020-12-14] MEDS: Sodium Chloride 0.9% 10 ML Syringe FLUSH PRN (08:43)
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
[2020-12-14] MEDS: Iopamidol 755 Mg/ML 100 ML Bottle IV ONE (09:33)
[2020-12-14] MEDS: Sodium Chloride 0.9% 1,000 ML IV SCH (09:38)
--- NOTE | 2020-12-14 12:45 | PCM.EKG ---
#1 Interpretation EKG Date: 12/14/20 Time: 07:45 Rhythm: NSR Rate (Beats/Min): 78 [place]: Normal P-Wave: Present QRS: Normal ST-T: Normal QT: Normal [place]/PQ Interval: 149 Comparison: No Change EKG Interpretation Comments: NSR LAE
--- NOTE | 2020-12-14 19:02 | CR ---
INDICATION: Chest pain. CHEST, ONE VIEW: AP portable upright view of the chest 12/14/20 was compared with 11/23/20 and 08/26/20. Extensive pulmonary fibrosis is noted, most severe on the right and at the left lung base, but extending throughout both lungs. This appears to be unchanged from the previous study. However, the possibility of superimposed areas of acute pneumonia are difficult to exclude, especially at the left lower lobe and right mid to upper lung field. Heart size is not well evaluated, but it does appear to be enlarged. No gross evidence of CHF is seen. MTDD
[2020-12-14 21:09] VITALS: BP 119/66; PULSE 88
== END 2020-12-14 11:00 | disposition home or self-care (01) ==
LOC: FB.ED 07:47
DX: R10.11 Right upper quadrant pain (principal); R10.13 Epigastric pain; E78.00 Pure hypercholesterolemia, unspecified; I10 Essential (primary) hypertension; K21.9 Gastro-esophageal reflux disease without esophagitis; J44.9 Chronic obstructive pulmonary disease, unspecified; E03.9 Hypothyroidism, unspecified; M10.9 Gout, unspecified; E66.9 Obesity, unspecified; Z68.30 Body mass index [BMI] 30.0-30.9, adult; Z86.16 Personal history of COVID-19; Z87.891 Personal history of nicotine dependence; Z79.899 Other long term (current) drug therapy; Z86.718 Personal history of other venous thrombosis and embolism
CPT/HCPCS: 36415; 71045; 74177; 80053; 81001; 82150; 83690; 84484; 85025; 93005; 96374; 99285; A9270; J2270; J7030; Q9967

== ENCOUNTER 2020-12-21 18:06 | Emergency (ER) | payer MEDICARE ==
[2020-12-21] MEDS ORDERED: Sodium Chloride 0.9% 10 ML Syringe FLUSH PRN (18:27)
[2020-12-21] MEDS ORDERED: Morphine 4 MG/ML VIAL IVPUSH STA (18:29)
[2020-12-21] MEDS ORDERED: Albuterol/Ipratropium 3.0-0.5 MG/3 ML Neb Soln NEB STA (18:29)
[2020-12-21] MEDS ORDERED: methylPREDNISolone Sodium Succinate 125 MG/2 ML SDV IVPUSH STA (18:29)
[2020-12-21 18:31] VITALS: BP 171/115; PULSE 96
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
--- NOTE | 2020-12-22 10:45 | CR ---
INDICATION: Dyspnea. CHEST, ONE VIEW: An AP upright portable view of the chest 12/21/20 was compared with 12/14/20 and 11/23/20. The heart appears enlarged. Upper lung field pulmonary vasculature appears slightly prominent, raising question of a mild degree of CHF or early CHF Interstitial markings may represent fibrosis and/or interstitial lung edema. Infiltration bilaterally in the upper through lower lung field on the right and mid to lower lung field on the left is again noted compatible with pulmonary fibrosis that is moderately severe to severe. The possibility of superimposed pneumonia in these areas cannot be excluded. Overlying EKG leads are noted. IMPRESSION: 1. Fairly stable appearance of the chest, but could not exclude areas of superimposed pneumonia in this patient with moderately severe to severe pulmonary fibrosis. 2. ASHD with question of mild or early CHF. MTDD
== END 2020-12-21 19:18 | disposition home or self-care (01) ==
LOC: FB.ED 18:06
DX: J44.1 Chronic obstructive pulmonary disease with (acute) exacerbation (principal); J84.10 Pulmonary fibrosis, unspecified; E78.00 Pure hypercholesterolemia, unspecified; I10 Essential (primary) hypertension; E03.9 Hypothyroidism, unspecified; M10.9 Gout, unspecified; K21.9 Gastro-esophageal reflux disease without esophagitis; E66.9 Obesity, unspecified; Z79.899 Other long term (current) drug therapy; Z86.718 Personal history of other venous thrombosis and embolism; Z79.82 Long term (current) use of aspirin; Z68.39 Body mass index [BMI] 39.0-39.9, adult
CPT/HCPCS: 36415; 71045; 80053; 83880; 84484; 85025; 93005; 96374; 96375; 99285-25; J2270; J2930; J7620-GY

== ENCOUNTER 2021-01-03 07:25 | Emergency (ER) | payer MEDICARE ==
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
[2021-01-03] MEDS ORDERED: Sodium Chloride 0.9% 10 ML Syringe FLUSH PRN (07:48)
[2021-01-03] MEDS ORDERED: Ondansetron 4 MG/2 ML SDV IVPUSH ONE (07:51)
[2021-01-03] MEDS ORDERED: fentaNYL 100 MCG/2 ML SDV IVPUSH ONE (07:52)
[2021-01-03] MEDS ORDERED: Sodium Chloride 0.9% 1,000 ML IV SCH (08:00)
[2021-01-03] MEDS ORDERED: Sodium Chloride 0.9% 1,000 ML IV ONE (08:59)
[2021-01-03] MEDS ORDERED: Iopamidol 755 MG/ML 150 ML Bottle IV ONE (09:48)
[2021-01-03 09:49] VITALS: BP 131/80; PULSE 79
--- NOTE | 2021-01-03 11:18 | CT ---
CT ABDOMEN AND PELVIS WITH CONTRAST INDICATION: Abdominal pain and distention. TECHNIQUE: Spiral 3.75 mm axial sections were obtained through the abdomen and pelvis with 125 mL Isovue 370 at 3.5 mL/second with sagittal and coronal reconstructions 01/03/21 and compared with 12/14/20. Total exam DLP was 1779.69 mGy/cm. FINDINGS: There is again noted extensive pulmonary fibrosis in the lower lung francisco visualized with no significant interval change. Numerous abnormal airspaces are noted. The liver appears to be slightly decreased in density compared with the previous study which may be on the basis of fatty liver but should be correlated clinically. No focal liver lesions were identified. No gallstones were demonstrated. The adrenal glands and kidneys appeared normal. The spleen and pancreas appeared normal. No biliary ductal dilatation was seen. Calcifications are again noted in the abdominal aorta (no evidence of AAA), iliac and femoral arteries. Prostate was not enlarged. There are calcifications in the prostate. Small inguinal hernia on the right includes only fat. Urinary bladder was unremarkable, yet somewhat distended in appearance. No ventral hernia was demonstrated. The appendix was visualized and appeared normal on axial images 73 through 79. No evidence of free air or bowel obstruction was identified. Relatively liquid stool is noted at the level of the rectosigmoid with air fluid levels raising the question of a process such as gastroenteritis. Colitis is felt to be less likely but is difficult to exclude - colonoscopy may be warranted especially if a screening procedure has not been obtained at an appropriate interval. Multiple apparent medication tablets are noted, which are metallic in density present in the colon for the most part. These were present on the previous examination also but different in location. No mass lesions, organomegaly or free fluid collections were identified in the abdomen or pelvis. Degenerative disc disease is noted at L4-5 and L5-S1 with vacuum disc phenomena and moderate hypertrophic degenerative changes of vertebral bodies anteriorly, most prominent at L3-4. The L2-3 disc space also is somewhat narrowed suggested disc disease there. IMPRESSION: 1. Air fluid levels with liquid stool in the rectosigmoid area/sigmoid colon raises the question of a process such as gastroenteritis or possibly colitis, the latter is felt to be less likely - correlate clinically with colonoscopy if appropriate for confirmation. 2. Question mild fatty liver. 3. ASD. 4. Pulmonary fibrosis - severe - stable. 5. No definite evidence of mechanical bowel obstruction could be identified. There are multiple tablets of metallic nature scattered about the colon. These were also present on the previous examination compatible with medication. 6. Degenerative changes and disc disease in the thoracolumbar spine and lumbosacral spine. 7. Small right inguinal hernia including only fat. Report was called to Dr. Pope at 1029 hours 01/03/21. [facility] [place]
== END 2021-01-03 12:00 | disposition home or self-care (01) ==
LOC: FB.ED 07:25
DX: K52.9 Noninfective gastroenteritis and colitis, unspecified (principal); E86.0 Dehydration; E78.00 Pure hypercholesterolemia, unspecified; I10 Essential (primary) hypertension; J44.9 Chronic obstructive pulmonary disease, unspecified; K21.9 Gastro-esophageal reflux disease without esophagitis; M10.9 Gout, unspecified; E03.9 Hypothyroidism, unspecified; E66.9 Obesity, unspecified; Z68.30 Body mass index [BMI] 30.0-30.9, adult; Z86.16 Personal history of COVID-19; Z79.899 Other long term (current) drug therapy; Z87.891 Personal history of nicotine dependence
CPT/HCPCS: 36415; 51798; 74177; 80053; 81001; 83605; 83690; 83735; 84484; 85025; 86140; 93005; 96374; 96375; 99285; J2405; J3010; J7030; Q9967

== ENCOUNTER 2021-01-25 19:41 | Emergency (ER) | payer MEDICARE ==
[2021-01-25] MEDS ORDERED: Azithromycin 250 MG Tab PO ONE (19:42)
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
--- NOTE | 2021-01-25 20:39 | CR ---
INDICATION: Short of breath. CHEST, TWO VIEWS: PA and lateral views of the chest 01/25/21 were compared with 12/21/20 and 12/14/20. The heart may be somewhat enlarged, but is not well seen. Degenerative changes are noted in the spine with hypertrophic lipping anteriorly and laterally. Extensive infiltrative-appearing changes are again noted, most likely representing severe pulmonary fibrosis. However, the possibility of some additional patchily consolidating pneumonia could not be excluded at the lung bases and especially on the left. No gross pleural effusion was seen. IMPRESSION: No definite acute process, but there does appear to be somewhat increased density at the left lung base and this could be on the basis of patchily consolidating pneumonia superimposed on fibrosis. Additionally, in areas of fibrosis present previously, it is difficult to exclude additional further areas of patchily consolidating pneumonia. Additionally noted are thickened bronchial [place] with bronchiectasis in the lower lung [place]. Report was called to Dr. Roca at 2009 hours, 01/25/21. [facility]
[2021-01-25] MEDS ORDERED: cloNIDine 0.1 MG Tab PO ONE (20:47)
[2021-01-25] MEDS ORDERED: hydrOXYzine HCl 50 MG/ML SDV IM ONE (20:47)
[2021-01-25] MEDS ORDERED: Meperidine PF 50 MG/ML Syringe IM ONE (20:47)
[2021-01-25 20:57] VITALS: BP 178/105
[2021-01-25 21:20] VITALS: PULSE 89
== END 2021-01-25 22:05 | disposition home or self-care (01) ==
LOC: FB.ED 19:41
DX: J18.9 Pneumonia, unspecified organism (principal); K21.9 Gastro-esophageal reflux disease without esophagitis; J44.9 Chronic obstructive pulmonary disease, unspecified; E78.00 Pure hypercholesterolemia, unspecified; M10.9 Gout, unspecified; I10 Essential (primary) hypertension; E03.9 Hypothyroidism, unspecified; E66.9 Obesity, unspecified; Z68.35 Body mass index [BMI] 35.0-35.9, adult; Z87.891 Personal history of nicotine dependence; Z79.899 Other long term (current) drug therapy; Z79.82 Long term (current) use of aspirin; Z20.822 Contact with and (suspected) exposure to COVID-19
CPT/HCPCS: 36415; 71046; 80053; 83690; 84484; 85025; 86140; 93005; 96372; 99285-25; A9270-GY; J2175; J3410

== ENCOUNTER 2021-02-23 18:04 | Emergency (ER) | payer MEDICARE ==
[2021-02-23 18:17] VITALS: BP 182/89; PULSE 96
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
[2021-02-23] MEDS ORDERED: hydrOXYzine HCl 50 MG/ML SDV IM ONE (20:12)
[2021-02-23 20:28] LABS: CORONAVIRUS COVID-19 NAA NEGATIVE (NEGATIVE)
[2021-02-23] MEDS ORDERED: Amoxicillin/Clavulanate K 875-125 MG Tab PO ONE (21:52)
[2021-02-23] MEDS ORDERED: Furosemide 20 MG Tab PO ONE (21:53)
[2021-02-23] MEDS ORDERED: Potassium Chloride 20 MEQ Tab.ER PO ONE (21:54)
--- NOTE | 2021-02-26 14:21 | CR ---
INDICATION: Short of breath, ascites, question pleural effusions. CHEST, TWO VIEWS: PA and lateral views of the chest were obtained, 02/23/21, and compared with 01/25/21 and 12/21/20. Extensive infiltration is again noted bilaterally, which may be on the basis of pulmonary fibrosis of severe degree. The possibility of superimposed areas of pneumonia cannot be excluded. Also noted is thickening of the pleura bilaterally, suggesting pleural fibrosis. The interstitial changes may be somewhat increased in the right upper lung field. The heart did not appear grossly enlarged, but was difficult to evaluate due to infiltration. IMPRESSION: 1. Extensive, probable fibrotic changes scattered throughout the lungs. The possibility of superimposed pneumonia cannot be excluded. 2. No significant size pleural effusion was noted. MTDD
== END 2021-02-23 22:30 | disposition home or self-care (01) ==
LOC: FB.ED 18:04
DX: J44.1 Chronic obstructive pulmonary disease with (acute) exacerbation (principal); E87.70 Fluid overload, unspecified; Z86.16 Personal history of COVID-19; Z79.899 Other long term (current) drug therapy; Z79.82 Long term (current) use of aspirin; Z20.822 Contact with and (suspected) exposure to COVID-19
CPT/HCPCS: 0240U; 36415; 71046; 80053; 81001; 83605; 83880; 84484; 85025; 86140; 87040; 96372; 99285; A9270; J3410

== ENCOUNTER 2021-03-09 19:04 | Emergency (ER) | payer MEDICARE ==
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
[2021-03-09 23:14] VITALS: BP 173/96; PULSE 90
--- NOTE | 2021-03-12 10:29 | CR ---
INDICATION: Cough, shortness of breath. ABDOMEN, TWO VIEWS: Six images of the abdomen in supine and upright projections, 03/09/21, were compared with 05/07/20 and, again, revealed extensive fibrotic-appearing changes in the lungs. No free air is noted under the hemidiaphragm leaves. Air-fluid levels are noted in the right flank, mainly in the colon, raising question of processes such as gastroenteritis. A mechanically obstructive process is felt to be less likely, as there is no additional distended bowel. Metallic-appearing densities are noted in the right flank, which may represent medication in the bowel. Evidence of previous hernia surgery is noted in the pelvis, as previously. No definite mass lesions or organomegaly could be identified. IMPRESSION: Air-fluid levels in the right flank, etiology indeterminate, may be on the basis of paralytic ileus locally in that area due to inflammatory disease, or possibly simply gastroenteritis. It should be correlated clinically. Followup x-rays of the abdomen may be helpful for further evaluation. The possibility of process such as intermittent cecal volvulus is a consideration, with the appearance of one of the supine images, showing a relatively prominent loop of colon, likely representing the cecum, which is dilated to a greater extent than adjacent bowel loops. MTDD
--- NOTE | 2021-03-12 10:34 | CR ---
INDICATION: Cough, shortness of breath. CHEST, TWO VIEWS: PA and lateral views of the chest 03/09/21 were compared with 02/23/21 and 01/25/21. The heart may be somewhat enlarged, but is difficult to evaluate. Upper lung field pulmonary vasculature appears to be somewhat prominent, raising question of CHF. Interstitial markings are very heavy, as previously, making it impossible to exclude interstitial lung edema. The areas of interstitial changes are extensive bilaterally and especially in the right mid to lower lung field and left lower lung field, making it impossible to exclude superimposed pneumonia, although much of these changes likely are on the basis of pulmonary fibrosis. Hypertrophic degenerative changes noted in the thoracic spine. IMPRESSION: 1. Possibility of ASHD with CHF and interstitial lung edema cannot be excluded. 2. Extensive pulmonary fibrosis, making it impossible to exclude areas of patchy bronchopneumonia, especially in the right midlung field and left lung base. MTDD
== END 2021-03-09 22:00 | disposition home or self-care (01) ==
LOC: FB.ED 19:04
DX: F41.9 Anxiety disorder, unspecified (principal); J44.9 Chronic obstructive pulmonary disease, unspecified; M10.9 Gout, unspecified; E03.9 Hypothyroidism, unspecified; E78.00 Pure hypercholesterolemia, unspecified; I10 Essential (primary) hypertension; E66.9 Obesity, unspecified; Z68.41 Body mass index [BMI] 40.0-44.9, adult; Z86.16 Personal history of COVID-19; Z79.899 Other long term (current) drug therapy
CPT/HCPCS: 36415; 71046; 74019; 80048; 84484; 85025; 86140; 99284-25

== ENCOUNTER 2021-03-10 18:01 | Emergency (ER) | payer MEDICARE ==
[2021-03-10 18:42] VITALS: PULSE 85
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
[2021-03-10] MEDS ORDERED: Ondansetron 4 MG/2 ML SDV IVPUSH ONE (18:54)
[2021-03-10] MEDS ORDERED: Morphine 4 MG/ML VIAL IVPUSH ONE (18:54)
[2021-03-10 20:07] VITALS: BP 144/84
--- NOTE | 2021-03-12 10:23 | CR ---
INDICATION: Cough, shortness of breath. CHEST, ONE VIEW: An AP upright portable view of the chest, 03/10/21, was compared with 03/09/21 and 02/23/21. Extensive fibrotic-appearing changes are scattered about the lungs. Superimposed areas of atelectasis, especially at the left lung base, and/or pneumonia, cannot be excluded. Little interval change is suggested, compared with 03/09/21, except to note overlying EKG leads. MTDD
== END 2021-03-10 20:40 | disposition home or self-care (01) ==
LOC: FB.ED 18:01
DX: R07.89 Other chest pain (principal); J44.9 Chronic obstructive pulmonary disease, unspecified; K21.9 Gastro-esophageal reflux disease without esophagitis; E03.9 Hypothyroidism, unspecified; E66.9 Obesity, unspecified; Z68.30 Body mass index [BMI] 30.0-30.9, adult; Z79.899 Other long term (current) drug therapy; Z79.82 Long term (current) use of aspirin
CPT/HCPCS: 36415; 71045; 80048; 83880; 84484; 85025; 85379; 93005; 96374; 96375; 99285-25; J2270; J2405

== ENCOUNTER 2021-03-12 20:02 | Emergency (ER) | payer MEDICARE ==
[2021-03-12] MEDS ORDERED: Acetaminophen/HYDROcodone 325-5 MG Tab PO STA (20:22)
[2021-03-12] MEDS ORDERED: predniSONE 20 MG Tab PO STA (20:22)
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
[2021-03-12 22:11] VITALS: BP 153/65; PULSE 86
== END 2021-03-12 21:50 | disposition home or self-care (01) ==
LOC: SUPCPDRO 20:02 → FB.ED 20:02
DX: J47.9 Bronchiectasis, uncomplicated (principal); J84.10 Pulmonary fibrosis, unspecified; R09.1 Pleurisy; E78.00 Pure hypercholesterolemia, unspecified; I10 Essential (primary) hypertension; K21.9 Gastro-esophageal reflux disease without esophagitis; M10.9 Gout, unspecified; E03.9 Hypothyroidism, unspecified; E66.9 Obesity, unspecified; Z68.30 Body mass index [BMI] 30.0-30.9, adult; Z86.16 Personal history of COVID-19; Z87.891 Personal history of nicotine dependence; Z79.899 Other long term (current) drug therapy; Z79.82 Long term (current) use of aspirin
CPT/HCPCS: 36415; 80053; 84484; 85025; 93005; 99284; A9270; J7512; 93010

== ENCOUNTER 2021-03-14 07:49 | Emergency (ER) | payer MEDICARE ==
[2021-03-14] MEDS ORDERED: Ketorolac 30 MG/ML SDV IM ONE (08:02)
[2021-03-14] MEDS ORDERED: Acetaminophen/HYDROcodone 325-5 MG Tab PO ONE ×2 (08:03→08:18)
[2021-03-14] MEDS: Nitroglycerin 0.4 MG Tab.SL SL PRN ×2 (09:03→09:14)
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
[2021-03-14 19:03] VITALS: BP 144/95; PULSE 105
== END 2021-03-14 11:10 | disposition home or self-care (01) ==
LOC: FB.ED 07:49
DX: J47.9 Bronchiectasis, uncomplicated (principal); J84.10 Pulmonary fibrosis, unspecified; R09.1 Pleurisy; E78.00 Pure hypercholesterolemia, unspecified; I10 Essential (primary) hypertension; M10.9 Gout, unspecified; K21.9 Gastro-esophageal reflux disease without esophagitis; E03.9 Hypothyroidism, unspecified; E66.9 Obesity, unspecified; Z68.30 Body mass index [BMI] 30.0-30.9, adult; Z79.899 Other long term (current) drug therapy; Z79.82 Long term (current) use of aspirin
CPT/HCPCS: 36415; 80053; 82150; 83690; 84484; 85025; 93005; 96372; 99285; A9270; J1885; 93010; 99284

== ENCOUNTER 2021-03-23 17:48 | Emergency (ER) | payer MEDICARE ==
[2021-03-23] MEDS ORDERED: Ketorolac 30 MG/ML SDV IVPUSH STA (19:00)
[2021-03-23] MEDS ORDERED: Morphine 4 MG/ML VIAL IVPUSH STA (19:00)
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
[2021-03-23 22:28] VITALS: BP 155/99; PULSE 89
--- NOTE | 2021-03-26 12:34 | CR ---
INDICATION: Chest pain, positive for COVID, February 2020. CHEST, ONE VIEW: Portable AP upright view of the chest, 03/23/21, was compared with 03/10/21 and 03/09/21. Bilateral infiltrative-appearing changes are again noted, compatible with pulmonary fibrosis, and making it difficult to exclude areas of patchy bronchopneumonia, superimposed. However, no definite new consolidating pneumonia was identified. Heart size is difficult to evaluate due to the poor inspiration and may be slightly enlarged. Overlying EKG leads are noted. Overlying snap noted also. IMPRESSION: Fairly stable appearance of the chest, but difficulty is present in excluding areas of patchy superimposed bronchopneumonia. MTDD
== END 2021-03-23 20:15 | disposition home or self-care (01) ==
LOC: FB.ED 17:48
DX: J47.9 Bronchiectasis, uncomplicated (principal); J84.10 Pulmonary fibrosis, unspecified; R09.1 Pleurisy; K21.9 Gastro-esophageal reflux disease without esophagitis; E03.9 Hypothyroidism, unspecified; E66.9 Obesity, unspecified; M10.9 Gout, unspecified; Z79.899 Other long term (current) drug therapy; Z79.82 Long term (current) use of aspirin; Z68.35 Body mass index [BMI] 35.0-35.9, adult
CPT/HCPCS: 36415; 71045; 80053; 82150; 83690; 83880; 84484; 85025; 93005; 96374; 96375; 99285-25; J1885; J2270

== ENCOUNTER 2021-03-28 10:09 | Emergency (ER) | payer MEDICARE ==
[2021-03-28] MEDS ORDERED: Sodium Chloride 0.9% 10 ML Syringe FLUSH PRN (10:21)
[2021-03-28] MEDS ORDERED: Morphine 4 MG/ML VIAL IVPUSH ONE (10:23)
[2021-03-28] MEDS ORDERED: Ketorolac 30 MG/ML SDV IVPUSH ONE (10:23)
[2021-03-28] MEDS ORDERED: Ketorolac 30 MG/ML SDV IM STA (10:43)
[2021-03-28] MEDS ORDERED: traMADol 50 MG Tab PO ONE (10:43)
[2021-03-28 19:15] VITALS: BP 152/72; PULSE 63
== END 2021-03-28 12:24 | disposition home or self-care (01) ==
LOC: FB.ED 10:09
DX: J47.9 Bronchiectasis, uncomplicated (principal); R09.1 Pleurisy; E78.00 Pure hypercholesterolemia, unspecified; I10 Essential (primary) hypertension; E03.9 Hypothyroidism, unspecified; K21.9 Gastro-esophageal reflux disease without esophagitis; E66.9 Obesity, unspecified; M10.9 Gout, unspecified; Z68.36 Body mass index [BMI] 36.0-36.9, adult; Z79.899 Other long term (current) drug therapy; Z79.82 Long term (current) use of aspirin
CPT/HCPCS: 36415; 71045; 80053; 83880; 84484; 85025; 93005; 93010; 96372; 99284-25; 99285; A9270-GY; J1885

== ENCOUNTER 2021-03-28 15:01 | Emergency (ER) | payer MEDICARE ==
[2021-03-28] MEDS ORDERED: Acetaminophen/oxyCODONE 325-5 MG Tab PO STA (15:08)
[2021-03-28 15:51] VITALS: BP 137/76; PULSE 82
[2021-03-28 16:18] LABS: CORONAVIRUS COVID-19 NAA NEGATIVE (NEGATIVE)
== END 2021-03-28 17:40 | disposition home or self-care (01) ==
LOC: FB.ED 15:01
DX: R07.89 Other chest pain (principal); R09.1 Pleurisy; M10.9 Gout, unspecified; K21.9 Gastro-esophageal reflux disease without esophagitis; J44.9 Chronic obstructive pulmonary disease, unspecified; E78.00 Pure hypercholesterolemia, unspecified; I10 Essential (primary) hypertension; E66.9 Obesity, unspecified; E03.9 Hypothyroidism, unspecified; Z79.899 Other long term (current) drug therapy; Z79.82 Long term (current) use of aspirin; Z68.36 Body mass index [BMI] 36.0-36.9, adult; Z87.891 Personal history of nicotine dependence; Z20.822 Contact with and (suspected) exposure to COVID-19
CPT/HCPCS: 0240U; 36415; 84484; 99284; A9270

== ENCOUNTER 2021-03-29 03:20 | Emergency (ER) | payer MEDICARE ==
[2021-03-29] MEDS ORDERED: Ketorolac 30 MG/ML SDV IM ONE (04:46)
[2021-03-29] MEDS ORDERED: hydrOXYzine HCl 50 MG/ML SDV IM ONE (04:47)
[2021-03-29 05:14] VITALS: BP 124/68; PULSE 84
== END 2021-03-29 05:05 | disposition home or self-care (01) ==
LOC: FB.ED 03:20
DX: J84.10 Pulmonary fibrosis, unspecified (principal); E78.00 Pure hypercholesterolemia, unspecified; I10 Essential (primary) hypertension; J44.9 Chronic obstructive pulmonary disease, unspecified; K21.9 Gastro-esophageal reflux disease without esophagitis; M10.9 Gout, unspecified; G30.9 Alzheimer's disease, unspecified; F02.80 Dementia in other diseases classified elsewhere, unspecified severity, without behavioral disturbance, psychotic disturbance, mood disturbance, and anxiety; E03.9 Hypothyroidism, unspecified; E66.9 Obesity, unspecified; Z68.39 Body mass index [BMI] 39.0-39.9, adult; Z86.16 Personal history of COVID-19; Z87.891 Personal history of nicotine dependence; Z79.82 Long term (current) use of aspirin; Z79.899 Other long term (current) drug therapy
CPT/HCPCS: 36415; 71045; 80053; 83690; 84484; 85025; 93005; 93010; 96372; 99285; 99285-25; J1885; J3410